=== PATIENT | female | born 1985 | race Caucasian/White ===

== ENCOUNTER 2016-11-22 12:58 | Emergency (ER) | payer BC, OTHER ==
--- NOTE | 2016-11-22 13:37 | ER Document Report ---
ED Medical Screen (RME) - General Chief Complaint: Weakness Stated Complaint: CHEST PAIN, NUMBNESS,WEAKNESS Time Seen by Provider: 11/22/16 13:31 Notes: 31-year-old female patient picked up by EMS from work where she fell out on the smoking deck. She was reportedly unresponsive and ammonia capsule was used to wake her up. She complains of left-sided chest pain with nausea without vomiting. She states that her left upper extremity is numb. When asked about prior incidents she states it has never been like this before. When asked to clarify she indicates that is happening to her legs before but never her arm. She states she is diagnosed with a muscle problem. She does take medication for depression and at this time become tearful and whiny in describing her symptoms. She is able to picker feeder the left arm and use it without difficulty. I have greeted and performed a rapid initial assessment of this patient. A comprehensive ED assessment and evaluation of the patient, analysis of test results and completion of the medical decision making process will be conducted by additional ED providers. TRAVEL OUTSIDE OF THE [place] IN LAST 30 DAYS: No - Related Data Allergies/Adverse Reactions: No Known Allergies Allergy (Verified 11/22/16 13:26) Home Medications: Current Home Medications Buspirone HCl [Buspar 5 mg Tablet] 5 mg PO BID 11/22/16 [History] Fluoxetine HCl [Prozac 20 mg Capsule] 20 mg PO BID 11/22/16 [History] Levonorgestrel [Liletta] 1 each IY ASDIR PRN 11/22/16 [History] Topiramate [Topamax 100 Mg Tablet] 100 mg PO BID 11/22/16 [History] Past Medical History Renal/ Medical History: Denies: Hx Peritoneal Dialysis Psychiatric Medical History: Reports: Hx Anxiety, Hx Depression - Immunizations Hx Diphtheria, Pertussis, Tetanus Vaccination: Yes Physical Exam - Vital signs Vitals: Temp Pulse Resp BP Pulse Ox 98.6 F 89 17 115/74 96 11/22/16 13:22 11/22/16 13:22 11/22/16 13:22 11/22/16 13:22 11/22/16 13:22 Course - Vital Signs Vital signs: Temp Pulse Resp BP Pulse Ox 98.6 F 89 17 115/74 96 11/22/16 13:22 11/22/16 13:22 11/22/16 13:22 11/22/16 13:22 11/22/16 13:22
[2016-11-22] MEDS ORDERED: ONDANSETRON HCL INJ/PF 4 MG/2 ML SDV IV ONE (15:02)
[2016-11-22 15:07] LABS: ABSOLUTE EOSINOPHILS # (AUTO) 0.1 10^3/uL (0.0-0.6); ABSOLUTE LYMPHOCYTES (AUTO) 0.9 10^3/uL (0.5-4.7); ABSOLUTE MONOCYTES (AUTO) 0.4 10^3/uL (0.1-1.4); ABSOLUTE NEUT (AUTO) 9.4 10^3/uL (1.7-8.2); BASOPHILS % (AUTO) 0.4 % (0-2); EOSINOPHILS % (AUTO) 0.5 % (0-6); HEMATOCRIT 38.5 % (36.0-47.0); HEMOGLOBIN 12.8 g/dL (12.0-15.5); HGB HCT DIFFERENCE -0.1; MEAN CORPUSCULAR HEMOGLOBIN 27.3 pg (27.0-33.4); MEAN CORPUSCULAR HGB CONC 33.2 g/dL (32.0-36.0); MEAN CORPUSCULAR VOLUME 82 fl (80-97); MONOCYTES % (AUTO) 3.8 % (3-13); RED BLOOD COUNT 4.69 10^6/uL (3.72-5.28); SEGMENTED NEUTROPHILS % (AUTO) 87.3 % (42-78); WHITE BLOOD COUNT 10.8 10^3/uL (4.0-10.5)
--- NOTE | 2016-11-22 15:07 | ER Document Report ---
ED Syncope and Near Syncope - General Chief Complaint: Weakness Stated Complaint: CHEST PAIN, NUMBNESS,WEAKNESS Time Seen by Provider: 11/22/16 13:31 Mode of Arrival: Wheelchair Information source: Patient Notes: Patient states that she did not eat breakfast or lunch today and around 12:00 this afternoon she was at work and she had a syncopal episode in which she was observed to be unresponsive for a few seconds. Patient states that her coworkers called the EMS. They did not observe any jerking or rhythmic movements. Patient states that after her syncopal episode she has had left- sided neck shoulder chest abdomen back arm hip and leg pain all on the left side. Patient does complain of nausea but denies any vomiting or diarrhea. Patient denies any urinary symptoms. Patient denies any cough headache, or chest pain. Patient states that she did have a syncopal episode last week after she developed right-sided abdominal pain and she followed up with her wide piece goods inspector who in addition to her IUD placed her on oral contraceptive control pills. TRAVEL OUTSIDE OF THE [place] IN LAST 30 DAYS: No - HPI Patient complains to provider of: Fainting Episode witnessed (by whom): Yes - co worker Symptoms prior to episode: None Position/Activity at time of episode: Sitting Quality of pain: Achy Pain Level: 4 Context: Became unresponsive. denies: Incontinent of urine, , Recent immobilization, Recent seizures, Recent travel Injury location: None Current symptoms: Abdominal pain - left side, Arm pain - left, Back pain - left , Chest pain - left side, Neck pain - left side, Shoulder pain - left side, Other - Left lower extremity pain Similar symptoms previously: Yes - Syncopal episode 1 week ago Recently seen / treated by doctor: Yes - FLIGHT OPERATION COORDINATOR 1 week ago - Related Data Allergies/Adverse Reactions: No Known Allergies Allergy (Verified 11/22/16 13:26) Home Medications: Current Home Medications Buspirone HCl [Buspar 5 mg Tablet] 5 mg PO BID 11/22/16 [History] Fluoxetine HCl [Prozac 20 mg Capsule] 20 mg PO BID 11/22/16 [History] Levonorgestrel [Liletta] 1 each IY ASDIR PRN 11/22/16 [History] Topiramate [Topamax 100 Mg Tablet] 100 mg PO BID 11/22/16 [History] Past Medical History - General Information source: Patient Last Menstrual Period: Last week - Social History Smoking Status: Current Every Day Smoker Chew tobacco use (# tins/day): No Frequency of alcohol use: None Drug Abuse: None Occupation: Call center Lives with: Spouse/Significant other Family History: Reviewed & Not Pertinent Renal/ Medical History: Denies: Hx Peritoneal Dialysis Psychiatric Medical History: Reports: Hx Anxiety, Hx Depression Past Surgical History: Reports: Hx Tonsillectomy - Immunizations Hx Diphtheria, Pertussis, Tetanus Vaccination: Yes Review of Systems - Review of Systems Constitutional: No symptoms reported. denies: Fever, Recent illness EENT: No symptoms reported Cardiovascular: Chest pain, Syncope Respiratory: denies: Cough, Short of breath Gastrointestinal: Abdominal pain, Nausea. denies: Diarrhea, Vomiting Genitourinary: Flank pain - left side Female Genitourinary: No symptoms reported. denies: Musculoskeletal: Back pain - left side, Muscle pain - LUE, LLE pain Skin: No symptoms reported Hematologic/Lymphatic: No symptoms reported Neurological/Psychological: Lost consciousness. denies: Confusion Physical Exam - Vital signs Vitals: Temp Pulse Resp BP Pulse Ox 98.6 F 89 17 115/74 96 11/22/16 13:22 11/22/16 13:22 11/22/16 13:22 11/22/16 13:22 11/22/16 13:22 - General General appearance: Appears well, Alert In distress: None - HEENT Head: Normocephalic, Atraumatic Eyes: Normal Conjunctiva: Normal Nasal: Normal Mouth/Lips: Normal Mucous membranes: Normal Neck: Normal, Supple. No: Lymphadenopathy - Respiratory Respiratory status: No respiratory distress Chest status: Tender Breath sounds: Normal Chest palpation: Tender - L upper chest area - Cardiovascular Rhythm: Regular Heart sounds: S1 appreciated, S2 appreciated Murmur: No - Abdominal Inspection: Obese Distension: No distension Bowel sounds: Normal Tenderness: Tender - LLQ tenderness Organomegaly: No organomegaly - Back Back: Tender - Tenderness with palpation of left thoracic and lumbar back area, no midline tenderness, step-off or deformity, CVA tenderness - left. No: Vertebra tenderness - Extremities General upper extremity: Normal inspection, Normal ROM General lower extremity: Normal inspection, Normal ROM Shoulder: Tender - tenderness with palpation of left shoulder joint Arm: Normal, Nontender Elbow: Normal, Nontender Forearm: Normal, Nontender Wrist: Normal, Nontender Hand: Normal, Nontender Hip: Normal, Nontender Calf: Normal, Nontender - Neurological Neuro grossly intact: Yes Cognition: Normal [place] Coma Scale Eye Opening: Spontaneous [place] Coma Scale Verbal: Oriented [place] Coma Scale Motor: Obeys Commands [place] Coma Scale Total: 15 Speech: Normal. No: Dysarthria Cranial nerves: Normal. No: Facial palsy Motor strength normal: LUE, RUE, LLE, RLE - Psychological Associated symptoms: Flat affect - Skin Skin Temperature: Warm Skin Moisture: Dry Skin Color: Normal Course - Re-evaluation Re-evalutation: 11/22/16 16:59 pt resting on stretcher, pt c/o drowsiness after the zofran. No n/v at this time. Consulted with Dr. Pacheco regarding patient presentation, agrees with plan of care. No additional testing advised at this time 11/22/16 17:51 The patient has atypical chest pain as the patient's chest pain is not suggestive of pulmonary embolus, cardiac ischemia, aortic dissection, or other serious etiology. Given the extremely low risk of these diagnoses for the test in evaluation for these possibilities does not appear to be indicated at this time. Patient has been instructed to return if the symptoms worsen or change in any way. - Vital Signs Vital signs: Temp Pulse Resp BP Pulse Ox 98.6 F 89 17 115/74 96 11/22/16 13:22 11/22/16 13:22 11/22/16 13:22 11/22/16 13:22 11/22/16 13:22 - Laboratory Result Diagrams: 11/22/16 14:49 11/22/16 14:49 Laboratory results interpreted by me: 11/22/16 11/22/16 11/22/16 14:08 14:49 14:49 WBC 10.8 H Seg Neutrophils % 87.3 H Lymphocytes % 8.0 L Absolute Neutrophils 9.4 H Chloride 109 H Carbon Dioxide 21 L Urine Protein 30 H Ur Leukocyte Esterase TRACE H Labs- Entire Visit 11/22/16 11/22/16 11/22/16 14:08 14:08 14:49 WBC 10.8 H RBC 4.69 Hgb 12.8 Hct 38.5 MCV 82 MCH 27.3 MCHC 33.2 RDW 14.0 Plt Count 315 Seg Neutrophils % 87.3 H Lymphocytes % 8.0 L Monocytes % 3.8 Eosinophils % 0.5 Basophils % 0.4 Absolute Neutrophils 9.4 H Absolute Lymphocytes 0.9 Absolute Monocytes 0.4 Absolute Eosinophils 0.1 Absolute Basophils 0.0 D-Dimer Sodium Potassium Chloride Carbon Dioxide Anion Gap BUN Creatinine Est GFR ( Amer) Est GFR (Non-Af Amer) Glucose POC Glucose Calcium Total Bilirubin Direct Bilirubin Indirect Bilirubin Neonat Total Bilirubin AST ALT Alkaline Phosphatase Creatine Kinase CK-MB (CK-2) Troponin I Total Protein Albumin Serum HCG, Qual Urine Color MIKE Urine Appearance CLOUDY Urine pH 5.0 Ur Specific [place] 1.029 Urine Protein 30 H Urine Glucose (UA) NEGATIVE Urine Ketones NEGATIVE Urine Blood NEGATIVE Urine Nitrite NEGATIVE Urine Bilirubin NEGATIVE Urine Urobilinogen NEGATIVE Ur Leukocyte Esterase TRACE H Urine WBC (Auto) 8 Urine RBC (Auto) 24 Urine Bacteria (Auto) TRACE Squamous Epi Cells Auto 11 Amorphous Sediment Auto TRACE Urine Mucus (Auto) MOD Urine Ascorbic Acid NEGATIVE Urine Opiates Screen NEGATIVE Urine Methadone Screen NEGATIVE Ur Barbiturates Screen NEGATIVE Ur Phencyclidine Scrn NEGATIVE Ur Amphetamines Screen NEGATIVE U Benzodiazepines Scrn NEGATIVE Urine Cocaine Screen NEGATIVE U Marijuana (THC) Screen UNCONFIRMED POSITIVE 11/22/16 11/22/16 11/22/16 14:49 14:49 14:49 WBC RBC Hgb Hct MCV MCH MCHC RDW Plt Count Seg Neutrophils % Lymphocytes % Monocytes % Eosinophils % Basophils % Absolute Neutrophils Absolute Lymphocytes Absolute Monocytes Absolute Eosinophils Absolute Basophils D-Dimer Sodium 142.9 Potassium 3.7 Chloride 109 H Carbon Dioxide 21 L Anion Gap 13 BUN 10 Creatinine 0.82 Est GFR ( Amer) > 60 Est GFR (Non-Af Amer) > 60 Glucose 89 POC Glucose Calcium 9.4 Total Bilirubin 0.6 Direct Bilirubin 0.4 Indirect Bilirubin Not Reportable Neonat Total Bilirubin Not Reportable AST 25 ALT 27 Alkaline Phosphatase 82 Creatine Kinase 58 CK-MB (CK-2) 0.29 Troponin I < 0.012 Total Protein 7.8 Albumin 4.2 Serum HCG, Qual NEGATIVE Urine Color Urine Appearance Urine pH Ur Specific [place] Urine Protein Urine Glucose (UA) Urine Ketones Urine Blood Urine Nitrite Urine Bilirubin Urine Urobilinogen Ur Leukocyte Esterase Urine WBC (Auto) Urine RBC (Auto) Urine Bacteria (Auto) Squamous Epi Cells Auto Amorphous Sediment Auto Urine Mucus (Auto) Urine Ascorbic Acid Urine Opiates Screen Urine Methadone Screen Ur Barbiturates Screen Ur Phencyclidine Scrn Ur Amphetamines Screen U Benzodiazepines Scrn Urine Cocaine Screen U Marijuana (THC) Screen 11/22/16 11/22/16 14:49 15:07 WBC RBC Hgb Hct MCV MCH MCHC RDW Plt Count Seg Neutrophils % Lymphocytes % Monocytes % Eosinophils % Basophils % Absolute Neutrophils Absolute Lymphocytes Absolute Monocytes Absolute Eosinophils Absolute Basophils D-Dimer < 0.27 Sodium Potassium Chloride Carbon Dioxide Anion Gap BUN Creatinine Est GFR ( Amer) Est GFR (Non-Af Amer) Glucose POC Glucose 96 Calcium Total Bilirubin Direct Bilirubin Indirect Bilirubin Neonat Total Bilirubin AST ALT Alkaline Phosphatase Creatine Kinase CK-MB (CK-2) Troponin I Total Protein Albumin Serum HCG, Qual Urine Color Urine Appearance Urine pH Ur Specific [place] Urine Protein Urine Glucose (UA) Urine Ketones Urine Blood Urine Nitrite Urine Bilirubin Urine Urobilinogen Ur Leukocyte Esterase Urine WBC (Auto) Urine RBC (Auto) Urine Bacteria (Auto) Squamous Epi Cells Auto Amorphous Sediment Auto Urine Mucus (Auto) Urine Ascorbic Acid Urine Opiates Screen Urine Methadone Screen Ur Barbiturates Screen Ur Phencyclidine Scrn Ur Amphetamines Screen U Benzodiazepines Scrn Urine Cocaine Screen U Marijuana (THC) Screen 11/22/16 17:52 - Diagnostic Test Radiology reviewed: Reports reviewed Discharge - Discharge Clinical Impression: Marijuana use, Myalgia Syncope Qualifiers: Syncope type: unspecified Qualified Code(s): R55 - Syncope and collapse UTI (urinary tract infection) Qualifiers: Urinary tract infection type: site unspecified Hematuria presence: without hematuria Qualified Code(s): N39.0 - Urinary tract infection, site not specified Condition: Stable Disposition: HOME, SELF-CARE Instructions: Urinary Tract Infection ([facility]), Trimethoprim-Sulfa ([facility]), Syncopal Episode ([facility]), Myalagia (Muscle Pain) ([facility]) Additional Instructions: Return immediately for any new or worsening symptoms Followup with your primary care provider, call tomorrow to make a followup appointment Avoid use of marijuana Stay well-hydrated Follow-up with your primary care provider for recheck Prescriptions: Sulfamethoxazole/Trimethoprim [Bactrim Ds Tablet] 1 each PO BID #10 tablet Forms: Return to Work Referrals: MAYELIN AARON MD [ACTIVE STAFF] - Follow up as needed [facility] [Provider Group] - Follow up as needed
[2016-11-22 15:15] LABS: AMORPHOUS SEDIMENT,URINE TRACE /HPF; APPEARANCE,URINE CLOUDY; BILIRUBIN,URINE NEGATIVE (NEGATIVE); GLUCOSE, URINE NEGATIVE (NEGATIVE); KETONES,URINE NEGATIVE (NEGATIVE); LEUKOCYTE ESTERASE,URINE TRACE (NEGATIVE); NITRITE,URINE NEGATIVE (NEGATIVE); PROTEIN,URINE 30 mg/dL (NEGATIVE); URINE SPECIFIC GRAVITY 1.029; UROBILINOGEN,URINE NEGATIVE mg/dL (<2.0)
[2016-11-22 15:30] LABS: ALANINE AMINOTRANSFERASE 27 U/L (9-52); ALBUMIN 4.2 g/dL (3.5-5.0); ALKALINE PHOSPHATASE 82 U/L (38-126); ANION GAP 13 (5-19); ASPARTATE AMINO TRANSFERASE 25 U/L (14-36); BILIRUBIN,DIRECT 0.4 mg/dL (0.0-0.4); BILIRUBIN,TOTAL 0.6 mg/dL (0.2-1.3); BLOOD UREA NITROGEN 10 mg/dL (7-20); CALCIUM 9.4 mg/dL (8.4-10.2); CARBON DIOXIDE 21 mmol/L (22-30); CHLORIDE 109 mmol/L (98-107); CREATINE KINASE 58 U/L (30-135); CREATININE RESULT 0.82 mg/dL (0.52-1.25); GLUCOSE 89 mg/dL (75-110); POTASSIUM 3.7 mmol/L (3.6-5.0); SODIUM 142.9 mmol/L (137-145); TOTAL PROTEIN 7.8 g/dL (6.3-8.2)
[2016-11-22 15:39] LABS: URINE BARBITURATES SCREEN NEGATIVE; URINE METHADONE SCREEN NEGATIVE; URINE OPIATES LOW NEGATIVE; URINE PHENCYCLIDINE SCREEN NEGATIVE
[2016-11-22 15:53] LABS: CREATINE KINASE MB 0.29 ng/mL (<4.55)
[2016-11-22 15:54] LABS: TROPONIN I < 0.012 ng/mL
--- NOTE | 2016-11-22 16:20 | RADIOLOGY REPORT (SQ) ---
EXAM DESCRIPTION: CHEST PA/LAT COMPLETED DATE/TIME: 11/22/2016 4:13 pm REASON FOR STUDY: cp COMPARISON: None. EXAM PARAMETERS: NUMBER OF VIEWS: two views TECHNIQUE: Digital Frontal and Lateral radiographic views of the chest acquired. RADIATION DOSE: NA LIMITATIONS: none FINDINGS: LUNGS AND PLEURA: No opacities, masses or pneumothorax. No pleural effusion. MEDIASTINUM AND HILAR STRUCTURES: No masses or contour abnormalities. HEART AND VASCULAR STRUCTURES: Heart normal size. No evidence for failure. BONES: No acute findings. HARDWARE: None in the chest. OTHER: No other significant finding. IMPRESSION: NO SIGNIFICANT RADIOGRAPHIC FINDING IN THE CHEST. TECHNICAL DOCUMENTATION: JOB ID: [id number] [employer]- All Rights Reserved
[2016-11-22] MEDS ORDERED: NORMAL SALINE 1000 ML 1,000 ML IV ONE (16:34)
[2016-11-22] MEDS ORDERED: KETOROLAC TROMETHAMINE INJ/PF 30 MG/1 ML SDV IV ONE (16:58)
[2016-11-22 19:02] VITALS: BP 108/58
--- NOTE | 2016-11-22 19:21 | EKG REPORT ---
SEVERITY:- BORDERLINE ECG - SINUS RHYTHM ATRIAL PREMATURE COMPLEX BORDERLINE T WAVE ABNORMALITIES : Confirmed by: Nicko Reyes MD 22-Nov-2016 19:20:17
== END 2016-11-22 19:00 | disposition home or self-care (01) ==
LOC: ER 12:58
DX: N39.0 Urinary tract infection, site not specified (principal); R55 Syncope and collapse; M79.1 Myalgia; F12.90 Cannabis use, unspecified, uncomplicated; R53.1 Weakness; R07.9 Chest pain, unspecified; R20.0 Anesthesia of skin; M54.2 Cervicalgia; M25.512 Pain in left shoulder; Z79.899 Other long term (current) drug therapy; F17.200 Nicotine dependence, unspecified, uncomplicated
CPT/HCPCS: 93005; 99285; 96361; 96374; 96375; 36415; 82553; 82962; 82550; 84703; 85025; 80053; 81001; 84484; 80307; 85379; 71020; 93010; J1885; J2405; J7030

== ENCOUNTER 2017-01-29 00:45 | Emergency (ER) | payer OTHER ==
--- NOTE | 2017-01-29 01:04 | ER Document Report ---
ED General - General Stated Complaint: POSSIBLE OVERDOSE Time Seen by Provider: 01/29/17 00:51 Cannot obtain history due to: Intoxicated, Uncooperative, Altered mental status Notes: Patient is a 31-year-old female who presents with a polysubstance overdose. Patient is altered, combative and unable to provide meaningful history. TRAVEL OUTSIDE OF THE [place] IN LAST 30 DAYS: No - Related Data Allergies/Adverse Reactions: No Known Allergies Allergy (Verified 11/22/16 13:26) Past Medical History - General Information source: Patient, Emergency Med Personnel Cannot obtain history due to: Intoxicated, Uncooperative, Altered mental status - Social History Smoking Status: Unknown if Ever Smoked Family History: Reviewed & Not Pertinent Renal/ Medical History: Denies: Hx Peritoneal Dialysis Psychiatric Medical History: Reports: Hx Anxiety, Hx Depression Past Surgical History: Reports: Hx Tonsillectomy - Immunizations Hx Diphtheria, Pertussis, Tetanus Vaccination: Yes Review of Systems - Review of Systems -: Yes ROS unobtainable due to patient's medical condition Physical Exam - Vital signs Interpretation: Tachycardic Notes: PHYSICAL EXAMINATION: GENERAL: Agitated, combative, intermittently somnolent HEAD: Atraumatic, normocephalic. EYES: Pupils equal round and reactive to light, extraocular movements intact, sclera anicteric, conjunctiva are normal. ENT: nares patent, oropharynx clear without exudates. Moist mucous membranes. NECK: Normal range of motion, supple without lymphadenopathy LUNGS: Breath sounds clear to auscultation bilaterally and equal. No wheezes rales or rhonchi. HEART: Regular tachycardia without murmurs ABDOMEN: Soft, nontender, normoactive bowel sounds. No guarding, no rebound. No masses appreciated. EXTREMITIES: Normal range of motion, no pitting or edema. No cyanosis. NEUROLOGICAL: No focal neurological deficits. Moves all extremities spontaneously. PSYCH: Agitated, combative, intermittently somnolent SKIN: Warm, Dry, normal turgor, no rashes or lesions noted. Course - Re-evaluation Re-evalutation: 01/29/17 01:02 Patient presents after an intentional overdose on cyclobenzaprine taking approximately anywhere between 150 and 300 mg in a suicide attempt. Patient has a history of bipolar disorder and schizoaffective disorder, is agitated and combative at time of arrival although not in a violent manner. She is protecting her airway. She struggles to explain if she took any additional medications other than cyclobenzaprine. She does admit that this was a suicide attempt. Poison control be contacted, patient was placed on cardiac rehab nurse, standard screening laboratories will be obtained, and IVC will be completed 01/29/17 01:36 Patient is now become increasingly agitated and has required physical restraints for the safety of herself and staff. Will continue to monitor closely. IVC has been completed. 01/29/17 02:54 Patient does still continue to be somewhat aggressive, did swing at one of the nurses at the first attempt to remove restraints. Laboratories are unremarkable. Poison control has been contacted and does not have any specific recommendations other than monitoring for 4-6 hours. She is cleared for psychiatric evaluation in the morning. - Laboratory Result Diagrams: 01/29/17 01:10 01/29/17 01:10 Laboratory results interpreted by me: 01/29/17 01:10 Sodium 148.3 H Chloride 112 H Carbon Dioxide 20 L Glucose 117 H Salicylates < 1.0 L Acetaminophen < 10 L - EKG Interpretation by Me Additional EKG results interpreted by me: 01/29/17 03:55 Normal sinus rhythm. Rate 94. No ST elevations or depressions. QTC is 466. Discharge - Discharge Clinical Impression: Suicide attempt Overdose Qualifiers: Encounter type: initial encounter Injury intent: intentional self-harm Qualified Code(s): T50.902A - Poisoning by unspecified drugs, medicaments and biological substances, intentional self-harm, initial encounter Condition: Fair Disposition: PSYCH HOSP/UNIT
[2017-01-29 01:21] LABS: ABSOLUTE EOSINOPHILS # (AUTO) 0.1 10^3/uL (0.0-0.6); ABSOLUTE MONOCYTES (AUTO) 0.5 10^3/uL (0.1-1.4); ABSOLUTE NEUT (AUTO) 6.2 10^3/uL (1.7-8.2); BASOPHILS % (AUTO) 0.5 % (0-2); EOSINOPHILS % (AUTO) 1.2 % (0-6); HEMATOCRIT 37.9 % (36.0-47.0); HEMOGLOBIN 12.8 g/dL (12.0-15.5); HGB HCT DIFFERENCE 0.5; LYMPHOCYTES % (AUTO) 22.9 % (13-45); MEAN CORPUSCULAR HEMOGLOBIN 27.8 pg (27.0-33.4); MEAN CORPUSCULAR HGB CONC 33.7 g/dL (32.0-36.0); MEAN CORPUSCULAR VOLUME 82 fl (80-97); MONOCYTES % (AUTO) 5.5 % (3-13); RED BLOOD COUNT 4.61 10^6/uL (3.72-5.28); RED CELL DISTRIBUTION WIDTH 13.7 % (11.5-14.0); SEGMENTED NEUTROPHILS % (AUTO) 69.9 % (42-78); WHITE BLOOD COUNT 8.8 10^3/uL (4.0-10.5)
[2017-01-29 01:37] LABS: ALANINE AMINOTRANSFERASE 35 U/L (9-52); ALBUMIN 4.2 g/dL (3.5-5.0); ALCOHOL < 10 mg/dL (NONE DETECTED); ALKALINE PHOSPHATASE 82 U/L (38-126); ANION GAP 16 (5-19); ASPARTATE AMINO TRANSFERASE 19 U/L (14-36); BILIRUBIN,DIRECT 0.3 mg/dL (0.0-0.4); BILIRUBIN,TOTAL 0.3 mg/dL (0.2-1.3); BLOOD UREA NITROGEN 12 mg/dL (7-20); CALCIUM 9.3 mg/dL (8.4-10.2); CARBON DIOXIDE 20 mmol/L (22-30); CHLORIDE 112 mmol/L (98-107); CREATININE RESULT 0.76 mg/dL (0.52-1.25); GLUCOSE 117 mg/dL (75-110); POTASSIUM 4.4 mmol/L (3.6-5.0); SODIUM 148.3 mmol/L (137-145); TOTAL PROTEIN 7.5 g/dL (6.3-8.2)
[2017-01-29] MEDS ORDERED: NORMAL SALINE 1000 ML 1,000 ML IV ONE (09:18)
--- NOTE | 2017-01-29 09:21 | ER Document Report ---
Doctor's Note Notes: 01/29/17 09:20 Patient was brought in yesterday secondary to overdose on cyclobenzaprine as a suicide attempt. Patient has a history of bipolar and schizoaffective disorder. Labs as recorded. I have ordered a liter of normal saline. Patient required restraints secondary to aggressive behavior. Labs as recorded. Repeat vital signs are stable. Patient is more calm at this time in no acute distress. Awaiting psychiatric evaluation.
--- NOTE | 2017-01-29 10:39 | EKG REPORT ---
SEVERITY:- NORMAL ECG - SINUS RHYTHM : Confirmed by: Mariaa Brush MD 29-Jan-2017 10:38:25
[2017-01-29 11:09] LABS: AMORPHOUS SEDIMENT,URINE TRACE /HPF; APPEARANCE,URINE CLOUDY; BILIRUBIN,URINE NEGATIVE (NEGATIVE); GLUCOSE, URINE NEGATIVE (NEGATIVE); KETONES,URINE NEGATIVE (NEGATIVE); LEUKOCYTE ESTERASE,URINE NEGATIVE (NEGATIVE); NITRITE,URINE NEGATIVE (NEGATIVE); PROTEIN,URINE NEGATIVE (NEGATIVE); UROBILINOGEN,URINE NEGATIVE mg/dL (<2.0)
[2017-01-29 11:54] LABS: URINE BARBITURATES SCREEN NEGATIVE; URINE METHADONE SCREEN NEGATIVE; URINE OPIATES LOW NEGATIVE; URINE PHENCYCLIDINE SCREEN NEGATIVE
--- NOTE | 2017-01-29 12:49 | PSYCHOLOGICAL NOTE ---
Psych Note - Psych Note Psych Note: Patient is a 31-year-old female who presents with a polysubstance overdose. Patient is altered, combative and unable to provide meaningful history. Patient disclosed that she took medications in the "heat of the moment." She continued to state that she does not think there was any trigger that caused her to do this. Patient denies any previous attempts. Patient reports she is diagnosed bipolar with psychotic features. She reports she was sees Dr. Allan at [facility] and told him she thought "stuff was starting to crack through" but that he "kind of brushed it off." Patient's Bobby is at bedside per patient's request. He disclosed the patient has been super happy and he thought things were going really well. He confirms the patient has been happier and more energetic than normal so he thought this was a good thing. He continued disclosed the patient was having difficulty sleeping and thinks this is why she is having a hard time staying awake now. He continued to disclose he was at work at the time the patient took the medications. He received a text message from his [id number] and went to the home since he was closer. He disclosed the patient has only had one previous attempt however this was 15 years ago when she was only 17 years old. Patient is semi-alert and orientated to person, place, time and circumstance. Patient goes in and out of sleep and having difficulty engaging with clinician and evaluation. Patient discloses auditory hallucinations. Attention and concentration are poor. Insight, judgment, impulse control is poor. 296.44 (F31.2) bipolar 1 disorder with psychotic features Impression\\plan: Patient is recommended to continue under IVC. Patient disclosed intentional overdose "in the heat of the moment" but is unable to identify a trigger. Patient is having difficulty engaging in evaluation, patient is going in and out of sleep. Patient will be reevaluated. Dr. Rodriguez was consulted and the care and management of this patient; attending physician is in agreement with recommendations and disposition.
--- NOTE | 2017-01-30 09:29 | ER Document Report ---
Doctor's Note Notes: 01/30/17 09:29 Patient was brought secondary to overdose on cyclobenzaprine as a suicide attempt. Patient has a history of bipolar and schizoaffective disorder. Labs as recorded. Labs as recorded. Repeat vital signs are stable. Patient is currently, no acute distress. Vital signs as recorded. Patient is calm with no acute complaints at this time.
--- NOTE | 2017-01-31 08:07 | PSYCHOLOGICAL NOTE ---
Psych Note - Psych Note Psych Note: Conducted brief check in with patient who is a 31-year-old female under IVC at [facility] due to polypharmacy overdose. Patient today continues to present depressed and denies knowledge of any precipitating factors to her overdose. Patient states this is quite confusing. Patient reports she thinks her medications need to be adjusted due to length of use and possible ineffectiveness at this time. Mother Niki : Left msg requesting return contact Patient appears alert and oriented. Mood is depressed with flat affect. Patient endorses suicidal intent behind her overdose but denies any precipitating events and is unable to identify a trigger. Patient denies homicidal ideations, intent, plan, means. Patient denies A/VH; delusions not noted. Thought processes were guarded. Conversational speech was low for rate , tone, and prosody. Intellectual abilities were estimated within average range. Attention and focus were poor. Insight, judgment, impulse control are poor. 296.44 (F31.2) bipolar 1 disorder with psychotic features Impression\plan: Patient is recommended to continue under IVC. At this time patient continues to present depressed and is unable to identify a trigger or precipitating event. Patient states she was not suicidal prior to the incident and does not know what happened. Patient is considered a danger to herself at this time due to poor insight and risk for continued episodes. I consulted with Dr. Rodriguez in regards to the care and management of this patient. [facility]AL is in agreement with disposition and recommendations.
[2017-01-31] MEDS ORDERED: BENZTROPINE MESYLATE 1 MG TABLET PO ONE (08:22)
[2017-01-31] MEDS ORDERED: FLUOXETINE HCL 20 MG CAPSULE PO ONE (08:22)
[2017-01-31] MEDS ORDERED: BUSPIRONE HCL 10 MG TABLET PO ONE (08:22)
[2017-01-31] MEDS ORDERED: OLANZAPINE 5 MG TABLET PO ONE (08:22)
--- NOTE | 2017-01-31 08:25 | PSYCHOLOGICAL NOTE ---
Psych Note - Psych Note Psych Note: Conducted check in with patient who is a 31-year-old female under IVC at [facility]. Patient today is sitting up and smiling in bed. Patient states she still does not know what precipitated this event. She states she was not arguing with her . She does report she attempted to disclose to her provider that she was concerned her medications were not working properly, and was added Seroquel at night. Patient states she does not think this helped and is questioning whether it made things worse. Patient reports she has spoken with her who is just as bewildered and they have discussed is a couple her following up with a different provider. Patient reports she does have private insurance. Discussed with patient additionally engaging in outpatient therapy to assist her in processing this event as well as identifying coping skills, and his safety plan to follow at home should she or her identify changes in mentation and/or triggers/warning signs. Patient reports she is agreeable to this. Patient requests information on additional providers. Patient reports she has previously engaged in therapy, but has mostly done her own research and educated herself on her disease. Patient states she generally handles it well and is efficaciously managed with her medications. Patient denies suicidal ideations. Patient denies wanting to engage in self-harm. Patient denies wanting to harm others. Patient denies homicidal ideations.Discussed possible precautionary measures to implement at home, to include managing her medications (and all otc meds) out of a locked box and monitoring usage. Patient states she is agreeable to this. , Henry : Return contact and states "I am 100% in agreement" with the plan of care. Has been reports he will get all of the medications in the home into a lock box and provide his her doses as they are due. He states he will restrict her access to any medications to include [id number]. Has been reports she is in agreement with her beginning outpatient therapy to adjust coping skills and identify a safety plan to implement within the home. states he is also in agreement to assist her in following up with medication management. No concerns reported. Patient is alert and oriented. He is euthymic with normal affect. Patient adamantly denies suicidal/homicidal ideations, intent, plan, means. Patient denies A/VH; delusions not noted. Thought processes were organized and linear. Conversational speech was within normal limits for rate, tone, and prosody. Intellectual abilities were estimated within average range. Attention and focus were fair. Insight, judgment, impulse control were poor to fair. 296.44 (F31.2) bipolar 1 disorder with psychotic features Impression\\plan: Patient is recommended for rescind IVC. Patient is considered psychiatrically cleared for discharge. Patient and are in agreement with the plan of care, to include following up with [facility] for outpatient counseling as well as medication management, purchasing a lock box and securing all medications in the home in said box, restricting patient access to medications with the exception of her doses when they are due provided to her by her . Patient no longer meets criteria for involuntary commitment per the [place] statute 122c as she denies suicidal ideations denies self-harm ideations, and denies thoughts of harming others. reports she is in agreement and feels she is safe to return home. I consulted with Dr. Rodriguez in regards to the care and management of this patient.
[2017-01-31] MEDS ORDERED: FLUOXETINE HCL 20 MG CAPSULE PO SCH (10:00)
[2017-01-31] MEDS ORDERED: BENZTROPINE MESYLATE 1 MG TABLET PO SCH (10:00)
[2017-01-31] MEDS ORDERED: OLANZAPINE 5 MG TABLET PO SCH (10:00)
[2017-01-31] MEDS ORDERED: BUSPIRONE HCL 10 MG TABLET PO SCH (10:00)
[2017-01-31 10:16] VITALS: BP 106/67
== END 2017-01-31 09:45 | disposition home or self-care (01) ==
LOC: ER 00:45
DX: T50.902A Poisoning by unspecified drugs, medicaments and biological substances, intentional self-harm, initial encounter (principal); Y92.9 Unspecified place or not applicable
CPT/HCPCS: 93005; 99285; 96360; 36415; 80307 ×4; 84703; 85025; 80053; 81001; 93010; J7030

== ENCOUNTER 2018-04-17 11:38 | Day surgery (SDC) | payer OTHER ==
[~2018-04-17 11:38] MED LIST: PROPOFOL INJ 200 MG/20 ML VIAL IV ONE
--- NOTE | 2018-04-17 12:55 | Operative Report ---
Operative Report DATE OF SURGERY: 04/17/18 Operative Report: The risks, benefits and alternatives of the procedure including the risks of bleeding, perforation requiring surgery are explained to the patient in detail and informed consent was obtained. The patient is brought back to the endoscopy suite and placed in the left, lateral decubital position. Timeout was called. Propofol medications administered. A rectal examination is done which did not reveal any masses, tears or fissures. An Olympus videoscope is introduced into the patient's rectum. The scope was then carefully advanced all the way to the cecum. The cecum was identified by the usual anatomical landmarks including the ileocecal valve as well as the appendiceal office. Photodocumentation is obtained. The scope was then sequentially pulled back via the various segments of the colon including the ascending colon, hepatic flexure, transverse colon, splenic flexure, descending colon and finally into the rectosigmoid portions of the colon. Retroflexion maneuver is performed. The risks benefits and alternatives of the procedure explained to the patient in detail and informed consent is obtained.A GIF Olympus video scope was inserted into the patient's mouth and hypopharynx, the esophagus is identified intubated and insufflated ,the scope was then advanced through the esophagus stomach and duodenum, retroflexion maneuver is done ,the esophagus stomach and first and second portions of the duodenum examined PREOPERATIVE DIAGNOSIS: Abdominal pain, periumbilical. Nausea vomiting POSTOPERATIVE DIAGNOSIS: Gastritis status post biopsy rule out Helicobacter pylori. Normal colonoscopy to the cecum. Mild terminal ileitis status post biopsy rule out Crohn's disease OPERATION: Colonoscopy with biopsy. EGD with biopsy SURGEON: AC TAVERAS ANESTHESIA: LMAC TISSUE REMOVED OR ALTERED: As noted above. COMPLICATIONS: None. ESTIMATED BLOOD LOSS: None. INTRAOPERATIVE FINDINGS: As noted above. PROCEDURE: Patient tolerated the procedure well. No immediate postprocedure complications are noted. Patient discharged in good condition. Discharge date 04/17/2018. Discharge diet: Regular. Discharge activity: Regular. 2-3-week follow-up to discuss findings. Patient is instructed to call the office or proceed to the emergency room should there be any further problems or questions. Wait on the pathology.
[2018-04-17 13:24] VITALS: BP 100/59
== END 2018-04-17 13:15 | disposition home or self-care (01) ==
LOC: END 11:38
PROVIDERS: ATTEND Internal Medicine Gastroenterology
DX: K29.50 Unspecified chronic gastritis without bleeding (principal); D50.9 Iron deficiency anemia, unspecified; K52.9 Noninfective gastroenteritis and colitis, unspecified; E66.9 Obesity, unspecified; R91.8 Other nonspecific abnormal finding of lung field; Z68.37 Body mass index [BMI] 37.0-37.9, adult; Z87.891 Personal history of nicotine dependence; Z79.899 Other long term (current) drug therapy
CPT/HCPCS: 43239; 45380; 81025; 88342 ×2; 88305 ×2; J2704; 813

== ENCOUNTER 2018-07-18 01:02 | Emergency (ER) | payer OTHER ==
--- NOTE | 2018-07-18 01:46 | ER Document Report ---
ED Psych Disorder / Suicide - General Chief Complaint: Psych Problem Stated Complaint: PSYCH PROBLEM Time Seen by Provider: 07/18/18 01:46 Mode of Arrival: Ambulatory Information source: Patient, Parent Cannot obtain history due to: Uncooperative Notes: HISTORY OF PRESENT ILLNESS: Patient is a 33-year-old female with a past medical history of bipolar disorder and anxiety/depression who presents with acute alcohol intoxication and intentional overdose on gabapentin. Patient has been off her medications and reports feeling "stressed out" due to stressors at home regarding her . Parents at bedside state the patient was hallucinating and they have "never seen her like this." Patient reports drinking alcohol but will not clarify how much, also reports taking "about 3 or 4" gabapentin after drinking unknown amount of alcohol then took "about 4 more" before being found by her parents. Onset: Prior to arrival Provocation: Stress at home Quality: Depression Radiation: None Severity: Severe Timing: Distant SI/HI: Passive suicidal ideation without a plan other than taking pills Hallucinations: Yes Current therapist: Yes Current treatment: Gabapentin REVIEW OF SYSTEMS: CONSTITUTIONAL : Denies fever or chills, no sweats. Denies recent illness. EENT: Denies eye, ear, throat, or mouth pain or symptoms. Denies nasal or sinus congestion. CARDIOVASCULAR: Denies chest pain. RESPIRATORY: Denies cough, cold, or chest congestion. Denies shortness of breath, difficulty breathing, or wheezing. GASTROINTESTINAL: Denies abdominal pain. Denies nausea, vomiting, or diarrhea. Denies constipation. GENITOURINARY: Denies difficulty urinating, painful urination, burning, frequency, or blood in urine. FEMALE GENITOURINARY: Denies vaginal bleeding, abnormal or irregular periods. Last menstrual period MUSCULOSKELETAL: Denies neck or back pain or joint pain or swelling. SKIN: Denies rash or skin lesions. HEMATOLOGIC : Denies easy bruising or bleeding. LYMPHATIC: Denies swollen, enlarged glands. NEUROLOGICAL: Denies altered mental status or loss of consciousness. Denies headache. Denies weakness or paralysis or loss of use of either side. Denies problems with gait or speech. Denies sensory or motor loss. PSYCHIATRIC: Positive for suicidal thoughts. Positive for increased stress and depression. All other systems reviewed and negative. PHYSICAL EXAMINATION: GENERAL: Intoxicated-appearing, well-nourished and in no acute distress. HEAD: Atraumatic, normocephalic. No scalp deformity, depression, or crepitance. EYES: Pupils are 4mm and equal/round/reactive to light, extraocular movements intact, sclera anicteric, conjunctiva are normal. ENT: Nares patent bilaterally, oropharynx clear without exudates or palatal petechia. Moist mucous membranes. No tonsil hypertrophy. NECK: Normal range of motion, supple without lymphadenopathy. LUNGS: Breath sounds present, equal, and clear to auscultation bilaterally. No wheezes, rales, or rhonchi. HEART: Regular rate and rhythm without murmurs, rubs, or gallops. 2+ peripheral pulses. Normal capillary refill. ABDOMEN: Innumerable number of superficial linear lacerations to the anterior abdomen. Soft, nontender, nondistended. Normoactive bowel sounds. No guarding, no rebound. No masses appreciated. BACK: Normal contour, no midline tenderness. Rectal exam deferred. PELVC: Deferred. EXTREMITIES: Innumerable number of superficial linear lacerations to the left anterior forearm without bleeding or drainage. Normal range of motion, no pitting or edema. No cyanosis. NEUROLOGICAL: No focal neurological deficits. Moves all extremities spontaneously and on command. PSYCH: Depressed and anxious mood, normal affect. Positive passive suicidal thoughts/ideations with a plan to "take more medicine or cut myself." No homocidal thoughts/ideations. Positive hallucinations that this provider is "a wizard" and that the nurses are "fairies," this facility is "a portal." SKIN: Warm, dry, normal turgor, no rashes or lesions noted. ASSESSMENT AND PLAN: This patient is a 33-year-old female who presents with acute alcohol intoxication and apparent intentional overdose with the intent to self-harm. Could represent initial psychotic break versus cry for help versus attention seeking behavior. 1. Will obtain medical clearance and observe the patient, will also contact poison control center. 2. Will give IV fluids and nicotine patch. 3. Will petition patient for involuntary commitment in inpatient treatment. TRAVEL OUTSIDE OF THE [place] IN LAST 30 DAYS: No COUNTRY TRAVELED TO/FROM: [facility] - Related Data Allergies/Adverse Reactions: No Known Allergies Allergy (Verified 04/17/18 11:55) Past Medical History - General Information source: Patient, Parent Cannot obtain history due to: Uncooperative - Social History Smoking Status: Current Every Day Smoker Chew tobacco use (# tins/day): No Frequency of alcohol use: Occasional Drug Abuse: Marijuana Lives with: Family Family History: Reviewed & Not Pertinent Patient has suicidal ideation: Yes Patient has homicidal ideation: No - Past Medical History Cardiac Medical History: Reports: None Denies: Hx Coronary Artery Disease, Hx Heart Attack, Hx Hypertension Pulmonary Medical History: Reports: None Denies: Hx Asthma, Hx Bronchitis, Hx COPD, Hx Pneumonia EENT Medical History: Reports: None Neurological Medical History: Reports: None. Denies: Hx Cerebrovascular Accident, Hx Seizures Endocrine Medical History: Reports: None Renal/ Medical History: Reports: None. Denies: Hx Peritoneal Dialysis Malignancy Medical History: Reports: None GI Medical History: Reports: None Musculoskeletal Medical History: Reports None, Denies Hx Arthritis Skin Medical History: Reports None Psychiatric Medical History: Reports: Hx Anxiety, Hx Bipolar Disorder, Hx Depression Traumatic Medical History: Reports: None Infectious Medical History: Reports: None Past Surgical History: Reports: Hx Tonsillectomy - Immunizations Hx Diphtheria, Pertussis, Tetanus Vaccination: Yes Physical Exam - Vital signs Vitals: Temp Pulse Resp BP Pulse Ox 99.2 F 112 H 16 131/76 H 98 07/18/18 01:20 07/18/18 01:20 07/18/18 01:20 07/18/18 01:20 07/18/18 01:20 Course - Re-evaluation Re-evalutation: 07/18/18 03:56 Initial blood work is unremarkable. Ethanol is mildly elevated but not impressive. Per recommendations of poison control center, patient will be observed for approximately 6 hours postingestion for possibility of oversedation and respiratory depression. Patient has been petitioned for involuntary commitment. Patient will be observed in the main adult emergency department until she can be safely transitioned to behavioral health. - Vital Signs Vital signs: Temp Pulse Resp BP Pulse Ox 99.2 F 112 H 16 131/76 H 97 07/18/18 01:20 07/18/18 01:20 07/18/18 02:00 07/18/18 01:20 07/18/18 02:00 - Laboratory Result Diagrams: 07/18/18 01:34 07/18/18 01:34 Laboratory results interpreted by me: 07/18/18 07/18/18 01:34 01:34 MCV 79 L RDW 14.4 H Chloride 108 H Carbon Dioxide 21 L Calcium 10.7 H Salicylates < 1.0 L Acetaminophen < 10 L - EKG Interpretation by Me EKG shows normal: Sinus rhythm Rate: Normal Rhythm: NSR [place]/QRS: No: Right axis deviation, Left axis deviation, RBBB, LBBB, IVCD, LAHB/LAFB, LPHB/LPFB, Bifasicular block Voltage: No: Increased voltage, Consistant with LVH, Decreased voltage, Throughout, Limb leads P Waves: No: RENUKA, LAE, Absent, AV Dissociation, Other Heart block present: No: 1st Degree, Mobitz 1, Mobitz 2, CHB (3rd degree block) When compared to previous EKG there are: No significant change - Transfer of Care Care transferred to following provider: Dr. Duque Discharge - Discharge Clinical Impression: Acute psychosis Condition: Stable Disposition: PSYCH HOSP/UNIT Forms: Parent Work Note
[2018-07-18 01:50] LABS: ABSOLUTE EOSINOPHILS # (AUTO) 0.1 10^3/uL (0.0-0.6); ABSOLUTE LYMPHOCYTES (AUTO) 2.1 10^3/uL (0.5-4.7); ABSOLUTE MONOCYTES (AUTO) 0.4 10^3/uL (0.1-1.4); ABSOLUTE NEUT (AUTO) 4.1 10^3/uL (1.7-8.2); BASOPHILS % (AUTO) 0.3 % (0-2); EOSINOPHILS % (AUTO) 0.9 % (0-6); HEMATOCRIT 40.3 % (36.0-47.0); HEMOGLOBIN 13.8 g/dL (12.0-15.5); LYMPHOCYTES % (AUTO) 31.4 % (13-45); MEAN CORPUSCULAR HEMOGLOBIN 27.1 pg (27.0-33.4); MEAN CORPUSCULAR HGB CONC 34.3 g/dL (32.0-36.0); MEAN CORPUSCULAR VOLUME 79 fl (80-97); MONOCYTES % (AUTO) 6.3 % (3-13); PLATELET COUNT 388 10^3/uL (150-450); RED CELL DISTRIBUTION WIDTH 14.4 % (11.5-14.0); SEGMENTED NEUTROPHILS % (AUTO) 61.1 % (42-78); TOTAL CELLS COUNTED % (AUTO) 100 %; WHITE BLOOD COUNT 6.7 10^3/uL (4.0-10.5)
[2018-07-18 02:10] LABS: APPEARANCE,URINE CLEAR; BILIRUBIN,URINE NEGATIVE (NEGATIVE); COLOR,URINE STRAW; GLUCOSE, URINE NEGATIVE (NEGATIVE); KETONES,URINE NEGATIVE (NEGATIVE); LEUKOCYTE ESTERASE,URINE NEGATIVE (NEGATIVE); NITRITE,URINE NEGATIVE (NEGATIVE); PROTEIN,URINE NEGATIVE (NEGATIVE); URINE SPECIFIC GRAVITY 1.004; UROBILINOGEN,URINE NEGATIVE mg/dL (<2.0)
[2018-07-18] MEDS ORDERED: CEPHALEXIN 500 MG CAPSULE PO ONE (02:18)
[2018-07-18] MEDS ORDERED: DIPH/PERTUSS(ACELL)/TETANUS VAC/PF 0.5 ML SYR (>=10YO) IM ONE (02:18)
[2018-07-18] MEDS ORDERED: NICOTINE 21 MG/24 HR PATCH.TD24 TD ONE (02:18)
[2018-07-18 02:24] LABS: URINE AMPHETAMINES SCREEN NEGATIVE; URINE BARBITURATES SCREEN NEGATIVE; URINE BENZODIAZEPINES SCREEN NEGATIVE; URINE COCAINE SCREEN NEGATIVE; URINE MARIJUANA (THC) SCREEN NEGATIVE; URINE METHADONE SCREEN NEGATIVE; URINE PHENCYCLIDINE SCREEN NEGATIVE
[2018-07-18 02:26] LABS: ALANINE AMINOTRANSFERASE 26 U/L (9-52); ALBUMIN 4.4 g/dL (3.5-5.0); ALKALINE PHOSPHATASE 87 U/L (38-126); ASPARTATE AMINO TRANSFERASE 20 U/L (14-36); BLOOD UREA NITROGEN 9 mg/dL (7-20); CARBON DIOXIDE 21 mmol/L (22-30); GLUCOSE 97 mg/dL (75-110); TOTAL PROTEIN 7.9 g/dL (6.3-8.2)
[2018-07-18 02:28] LABS: ANION GAP 11 (5-19); CHLORIDE 108 mmol/L (98-107); SODIUM 140.2 mmol/L (137-145)
[2018-07-18 02:29] LABS: ALCOHOL 32 mg/dL (NONE DETECTED); POTASSIUM 4.1 mmol/L (3.6-5.0)
[2018-07-18 02:40] LABS: BILIRUBIN,DIRECT 0.3 mg/dL (0.0-0.4); BILIRUBIN,TOTAL 0.4 mg/dL (0.2-1.3); CALCIUM 10.7 mg/dL (8.4-10.2)
[2018-07-18 02:50] LABS: ACETAMINOPHEN < 10 ug/mL (10-30); SALICYLATE < 1.0 mg/dL (2.0-20.0)
[2018-07-18] MEDS ORDERED: NORMAL SALINE 1000 ML 1,000 ML IV ONE (02:55)
--- NOTE | 2018-07-18 09:21 | ER Document Report ---
Doctor's Note Notes: 07/18/18 09:19 Patient seen and evaluated. She was initially seen for potential Neurontin overdose, alcohol intoxication, auditory hallucinations. Laboratory investigations were evaluated. This morning she is complaining of a headache. She has a history of headaches similar to this. She denies any visual changes associated. She describes pain with bright light and loud noises. This is all typical of her headaches. She says she has some associated nausea as well. She understands that she is being transferred to a psychiatric facility. Poison control recommendations were followed, the patient was served for over 6 hours, and is medically cleared. We will transfer to a psychiatric facility pending acceptance. Vital signs reviewed. Head is normocephalic and atraumatic. Pupils are equal and round, reactive to light. Heart is regular rate and rhythm, lungs are clear to auscultation bilaterally. Extremities without cyanosis or clubbing. Peripheral pulses are equal. Neck is supple, no meningismus. Examination of the upper extremity reveals superficial linear lacerations consistent with self-injurious behavior. Assessment includes intentional overdose, auditory hallucination, self-injurious behavior. Patient is medically cleared. We will transferred to a psychiatric facility for further psychiatric care. 07/18/18 09:42
[2018-07-18] MEDS ORDERED: ONDANSETRON HCL INJ/PF 4 MG/2 ML SDV IV ONE (09:28)
[2018-07-18] MEDS ORDERED: KETOROLAC TROMETHAMINE INJ/PF 30 MG/1 ML SDV IV ONE (09:28)
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
[2018-07-18] MEDS ORDERED: CHLORPROMAZINE HCL 50 MG TABLET PO ONE (12:58)
[2018-07-18 13:46] VITALS: BP 113/60
--- NOTE | 2018-07-19 00:04 | EKG REPORT ---
SEVERITY:- ABNORMAL ECG - SINUS TACHYCARDIA NONSPECIFIC T ABNORMALITIES, INFERIOR LEADS : Confirmed by: Dayne Mcclelland 19-Jul-2018 00:03:01
== END 2018-07-18 13:49 ==
LOC: ER 01:02
DX: F23 Brief psychotic disorder (principal); T42.6X2A Poisoning by other antiepileptic and sedative-hypnotic drugs, intentional self-harm, initial encounter; F32.9 Major depressive disorder, single episode, unspecified; F10.129 Alcohol abuse with intoxication, unspecified; Y92.009 Unspecified place in unspecified non-institutional (private) residence as the place of occurrence of the external cause; F17.200 Nicotine dependence, unspecified, uncomplicated; Z23 Encounter for immunization
CPT/HCPCS: 93005; 99285; 36415; 80307 ×4; 84703; 85025; 80053; 81001; 90715; 93010; J3490; J1885; J2405; J7030

== ENCOUNTER 2019-05-04 22:42 | Emergency (ER) | payer OTHER, BC ==
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
[2019-05-05 00:40] LABS: APPEARANCE,URINE CLEAR; BILIRUBIN,URINE NEGATIVE (NEGATIVE); COLOR,URINE YELLOW; GLUCOSE, URINE NEGATIVE (NEGATIVE); KETONES,URINE NEGATIVE (NEGATIVE); LEUKOCYTE ESTERASE,URINE NEGATIVE (NEGATIVE); NITRITE,URINE NEGATIVE (NEGATIVE); PROTEIN,URINE NEGATIVE (NEGATIVE); URINE SPECIFIC GRAVITY 1.023; UROBILINOGEN,URINE NEGATIVE mg/dL (<2.0)
[2019-05-05 00:41] LABS: ABSOLUTE EOSINOPHILS # (AUTO) 0.1 10^3/uL (0.0-0.6); ABSOLUTE LYMPHOCYTES (AUTO) 1.9 10^3/uL (0.5-4.7); ABSOLUTE MONOCYTES (AUTO) 0.4 10^3/uL (0.1-1.4); ABSOLUTE NEUT (AUTO) 6.9 10^3/uL (1.7-8.2); BASOPHILS % (AUTO) 0.4 % (0-2); EOSINOPHILS % (AUTO) 0.9 % (0-6); HEMATOCRIT 39.4 % (36.0-47.0); HEMOGLOBIN 13.2 g/dL (12.0-15.5); LYMPHOCYTES % (AUTO) 19.9 % (13-45); MEAN CORPUSCULAR HEMOGLOBIN 27.4 pg (27.0-33.4); MEAN CORPUSCULAR HGB CONC 33.5 g/dL (32.0-36.0); MEAN CORPUSCULAR VOLUME 82 fl (80-97); MONOCYTES % (AUTO) 4.7 % (3-13); PLATELET COUNT 332 10^3/uL (150-450); RED BLOOD COUNT 4.82 10^6/uL (3.72-5.28); RED CELL DISTRIBUTION WIDTH 13.6 % (11.5-14.0); SEGMENTED NEUTROPHILS % (AUTO) 74.1 % (42-78); TOTAL CELLS COUNTED % (AUTO) 100 %; WHITE BLOOD COUNT 9.4 10^3/uL (4.0-10.5)
[2019-05-05 01:02] LABS: ALBUMIN 4.3 g/dL (3.5-5.0); ALKALINE PHOSPHATASE 94 U/L (38-126); ANION GAP 12 (5-19); ASPARTATE AMINO TRANSFERASE 21 U/L (14-36); BILIRUBIN,TOTAL 0.3 mg/dL (0.2-1.3); BLOOD UREA NITROGEN 12 mg/dL (7-20); CALCIUM 9.8 mg/dL (8.4-10.2); CARBON DIOXIDE 25 mmol/L (22-30); CHLORIDE 102 mmol/L (98-107); GLUCOSE 151 mg/dL (75-110); POTASSIUM 3.8 mmol/L (3.6-5.0); TOTAL PROTEIN 7.5 g/dL (6.3-8.2)
[2019-05-05] MEDS ORDERED: ONDANSETRON 4 MG TAB.RAPDIS PO ONE (03:54)
[2019-05-05] MEDS ORDERED: OXYCODONE-ACETAMINOPHEN 5-325 MG TABLET PO ONE (03:54)
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
--- NOTE | 2019-05-05 05:11 | RADIOLOGY REPORT (SQ) ---
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 TECHNIQUE: AP, oblique, and lateral images of the left knee were obtained. COMPARISON: None available FINDINGS: There are no findings to suggest an acute fracture or subluxation. No suprapatellar joint effusion is seen. The visualized soft tissues are grossly unremarkable. No gross erosions or abnormal soft tissue calcifications are seen. IMPRESSION: There are no findings to suggest an acute fracture or subluxation within the left knee.
[2019-05-05] MEDS ORDERED: HYDROCODONE/ACETAMINOPHEN 5-325 MG (6 TAB/ER DISP) PO PRN (05:22)
[2019-05-05 05:53] VITALS: BP 98/52
== END 2019-05-05 05:53 | disposition home or self-care (01) ==
LOC: ER 22:42
DX: R07.89 Other chest pain (principal); R07.81 Pleurodynia; M25.562 Pain in left knee; R10.9 Unspecified abdominal pain; V87.7XXA Person injured in collision between other specified motor vehicles (traffic), initial encounter
CPT/HCPCS: 99284; 36415; 85025; 81025; 80053; 81001; 73564; 71101; S0119

== ENCOUNTER → 2019-11-19 | Outpatient (CLI) | payer BC ==
[2019-11-19 15:02] LABS: FREE T3 3.4 pg/mL (2.77-5.27); FREE T4 (FREE THYROXINE) 0.95 ng/dL (0.78-2.19)
[2019-11-19 15:15] LABS: THYROID STIMULATING HORMONE 0.19 uIU/mL (0.47-4.68)
== END ==
LOC: OD 13:51
PROVIDERS: ATTEND Family Medicine Geriatric Medicine
DX: E05.90 Thyrotoxicosis, unspecified without thyrotoxic crisis or storm (principal)
CPT/HCPCS: 36415; 84439; 84443; 84481

== ENCOUNTER → 2019-11-27 | Outpatient (CLI) | payer BC ==
--- NOTE | 2019-11-28 11:56 | RADIOLOGY REPORT (SQ) ---
EXAM DESCRIPTION: U/S THYROID/SFT TISS HD NECK IMAGES COMPLETED DATE/TIME: 11/27/2019 4:08 pm REASON FOR STUDY: E07.89 OTHER SPECIFIED DISORDERS OF THYROID E07.89 OTHER SPECIFIED DISORDERS OF T HYROID COMPARISON: CT soft tissue neck with contrast 02/22/2014 TECHNIQUE: Dynamic and static soni-scale images acquired of the thyroid gland. Selected additional c olor/power Doppler images recorded. All images stored to PACS. LIMITATIONS: None. FINDINGS: RIGHT LOBE: Normal size. Homogeneous echotexture. Few small hypoechoic nodular densities are similar to that seen on comparison CT imaging. LEFT LOBE: Normal size. Homogeneous echotexture. Subcentimeter cystic focus is seen within the post erior aspect of the gland. ISTHMUS: Normal size. Homogeneous echotexture. A 5 cm hypoechoic nodule is seen to the left of midl ine. OTHER: No other significant finding. IMPRESSION: Multiple small nodules, none of which meet imaging criteria for tissue sampling or anna marie nued monitoring and each of which appear stable relative to 2014 CT imaging. TECHNICAL DOCUMENTATION: JOB ID: [id number] 2010 [employer]- All Rights Reserved Reading location - IP/workstation name: [email or web address]
== END ==
LOC: RAD 15:38
PROVIDERS: ATTEND Family Medicine Geriatric Medicine
DX: E07.89 Other specified disorders of thyroid (principal); E05.90 Thyrotoxicosis, unspecified without thyrotoxic crisis or storm
CPT/HCPCS: 76536

== ENCOUNTER 2020-01-29 09:25 | Emergency (ER) | payer SELFPAY ==
[2020-01-29 11:27] LABS: APPEARANCE,URINE CLOUDY; BILIRUBIN,URINE NEGATIVE (NEGATIVE); CALCIUM OXALATE CRYSTALS,URINE MANY /HPF; COLOR,URINE YELLOW; GLUCOSE, URINE NEGATIVE (NEGATIVE); KETONES,URINE NEGATIVE (NEGATIVE); LEUKOCYTE ESTERASE,URINE NEGATIVE (NEGATIVE); NITRITE,URINE NEGATIVE (NEGATIVE); PROTEIN,URINE NEGATIVE (NEGATIVE); UROBILINOGEN,URINE NEGATIVE mg/dL (<2.0)
[2020-01-29 11:37] LABS: ABSOLUTE LYMPHOCYTES (AUTO) 1.5 10^3/uL (0.5-4.7); ABSOLUTE MONOCYTES (AUTO) 0.5 10^3/uL (0.1-1.4); ABSOLUTE NEUT (AUTO) 4.8 10^3/uL (1.7-8.2); BASOPHILS % (AUTO) 0.4 % (0-2); EOSINOPHILS % (AUTO) 0.6 % (0-6); HEMOGLOBIN 14.2 g/dL (12.0-15.5); LYMPHOCYTES % (AUTO) 22.3 % (13-45); MEAN CORPUSCULAR HEMOGLOBIN 27.2 pg (27.0-33.4); MEAN CORPUSCULAR HGB CONC 33.7 g/dL (32.0-36.0); MEAN CORPUSCULAR VOLUME 81 fl (80-97); MONOCYTES % (AUTO) 6.8 % (3-13); PLATELET COUNT 375 10^3/uL (150-450); RED BLOOD COUNT 5.21 10^6/uL (3.72-5.28); RED CELL DISTRIBUTION WIDTH 13.1 % (11.5-14.0); SEGMENTED NEUTROPHILS % (AUTO) 69.9 % (42-78); TOTAL CELLS COUNTED % (AUTO) 100 %; WHITE BLOOD COUNT 6.8 10^3/uL (4.0-10.5)
[2020-01-29 11:39] LABS: ALBUMIN 4.8 g/dL (3.5-5.0); ALKALINE PHOSPHATASE 84 U/L (38-126); ANION GAP 10 (5-19); ASPARTATE AMINO TRANSFERASE 21 U/L (14-36); BILIRUBIN,DIRECT 0.2 mg/dL (0.0-0.4); BILIRUBIN,TOTAL 0.7 mg/dL (0.2-1.3); BLOOD UREA NITROGEN 10 mg/dL (7-20); CALCIUM 10.8 mg/dL (8.4-10.2); CARBON DIOXIDE 31 mmol/L (22-30); CHLORIDE 99 mmol/L (98-107); GLUCOSE 94 mg/dL (75-110)
[2020-01-29] MEDS ORDERED: ONDANSETRON HCL INJ/PF 4 MG/2 ML SDV IV ONE (12:47)
[2020-01-29] MEDS ORDERED: DEXTROSE 5%-LACTATED RINGERS 1,000 ML IV ONE (12:47)
[2020-01-29] MEDS ORDERED: KETOROLAC TROMETHAMINE INJ/PF 30 MG/1 ML SDV IV ONE (12:48)
--- NOTE | 2020-01-29 13:30 | ER Document Report ---
Entered by SUHAIL SANTILLAN SCRIBE 01/29/20 1234 Acting as scribe for:PARISH BOURGEOIS MD ED General - General Chief Complaint: Vomiting Stated Complaint: VOMITING Time Seen by Provider: 01/29/20 12:30 Primary Care Provider: FEDERICO GABRIEL MD [Primary Care Provider] - Follow up as needed Mode of Arrival: Ambulatory Information source: Patient Notes: This 34 year old female patient presents to the ED today for evaluation of nausea and vomiting for the past x1 week. Patient states that she has not been able to keep anything down and that she has lost approximately x10 lbs. She reports a fever of 100.5 last week. When asked if she has any abdominal pain, she states that "yeah, it is painful." Denies cough or loss of smell. TRAVEL OUTSIDE OF THE [place] IN LAST 30 DAYS: No - Related Data Allergies/Adverse Reactions: No Known Allergies Allergy (Verified 04/17/18 11:55) Past Medical History - General Information source: Patient, [facility] Records - Social History Smoking Status: Former Smoker - quit 11/2019 Cigarette use (# per day): No Chew tobacco use (# tins/day): No Smoking Education Provided: No Frequency of alcohol use: None Drug Abuse: None Family History: Reviewed & Not Pertinent Patient has suicidal ideation: No Patient has homicidal ideation: No Psychiatric Medical History: Reports: Hx Anxiety, Hx Bipolar Disorder, Hx Depr ession Past Surgical History: Reports: Hx Tonsillectomy - Immunizations Hx Diphtheria, Pertussis, Tetanus Vaccination: Yes Review of Systems - Review of Systems Constitutional: See HPI, Fever, Weight loss EENT: See HPI, Other - Loss of smell Cardiovascular: No symptoms reported Respiratory: See HPI. denies: Cough Gastrointestinal: See HPI, Abdominal pain, Nausea, Vomiting, Poor fluid intake Genitourinary: No symptoms reported Female Genitourinary: No symptoms reported Musculoskeletal: No symptoms reported Skin: No symptoms reported Hematologic/Lymphatic: No symptoms reported Neurological/Psychological: No symptoms reported -: Yes All other systems reviewed and negative Physical Exam - Vital signs Vitals: Temp Pulse Resp BP Pulse Ox 98.5 F 59 L 16 117/62 97 01/29/20 10:04 01/29/20 10:04 01/29/20 10:04 01/29/20 10:04 01/29/20 10:04 - General General appearance: Appears well, Alert In distress: None - HEENT Head: Normocephalic, Atraumatic Eyes: Normal Pupils: PERRL - Respiratory Respiratory status: No respiratory distress Chest status: Nontender Breath sounds: Normal Chest palpation: Normal - Cardiovascular Rhythm: Regular Heart sounds: Normal auscultation Murmur: No Friction rub: No Gallop: None auscultated - Abdominal Inspection: Obese Distension: No distension Bowel sounds: Normal Tenderness: Nontender - Abdomen soft Organomegaly: No organomegaly - Back Back: Normal, Nontender - Extremities General upper extremity: Normal inspection General lower extremity: Normal inspection. No: Edema - Neurological Neuro grossly intact: Yes Orientation: AAOx4 Simba Coma Scale Eye Opening: Spontaneous Simba Coma Scale Verbal: Oriented Rea Coma Scale Motor: Obeys Commands Rea Coma Scale Total: 15 - Psychological Associated symptoms: Normal affect, Normal mood - Skin Skin Temperature: Warm Skin Moisture: Dry Skin Color: Normal Course - Re-evaluation Re-evalutation: 01/29/20 14:44 The patient was evaluated during the global COVID-19 pandemic and that diagnosis was suspected/considered upon their initial presentation. Their evaluation, treatment and testing was consistent with current guidelines for patients who present with complaints or symptoms that may be related to COVID-19. 01/29/20 15:37 The patient reports being unable to keep anything down for 7 days, and 10 pound weight loss. Her urinalysis has no ketones, and her BUN is 10. 01/29/20 16:15 And has had 1 L of IV fluids. She has been up to the bathroom to urinate. She states she is feeling better. She will be discharged home with prescription for Zofran, precautions to self isolate till she gets his Covid testing back. - Vital Signs Vital signs: Temp Pulse Resp BP Pulse Ox 98.5 F 59 L 16 117/62 97 01/29/20 10:04 01/29/20 10:04 01/29/20 10:04 01/29/20 10:04 01/29/20 10:04 - Laboratory Result Diagrams: 01/29/20 11:05 01/29/20 11:05 Laboratory results interpreted by me: 01/29/20 11:05 Carbon Dioxide 31 H Calcium 10.8 H Discharge - Discharge Clinical Impression: Nausea and vomiting Qualifiers: Vomiting type: unspecified Vomiting Intractability: non-intractable Qualified Code(s): R11.2 - Nausea with vomiting, unspecified Abdominal pain Qualifiers: Abdominal location: unspecified location Qualified Code(s): R10.9 - Unspecified abdominal pain Condition: Stable Disposition: HOME, SELF-CARE Instructions: COVID-19 Guidance for Persons Under Investigation Additional Instructions: Abdominal Pain There are many causes of abdominal pain. Pain can mean a serious problem requiring surgery (such as appendicitis). It can also be an innocent problem that goes away on its own (such as a viral infection). Often, time must pass to determine the cause of pain. The physician does not feel that hospitalization is necessary, at present. Things may change within the next 24 hours. Call the doctor or come back for re- examination if any problems occur, such as: (1) Pain that becomes more severe, steady, or becomes concentrated in one specific area. Also, pain that is more severe with movement or coughing. (2) Vomiting that persists or becomes more frequent. (3) Blood in the vomitus, urine, or bowel movements. Blood in the stool may have a tarry or black appearance. (4) Shaking chills or fever greater than 100 degrees F. (5) The abdomen becomes more distended or swollen. (6) Bowel movements cease. (7) Failure to improve as expected. Nausea or Vomiting, Nonspecific Vomiting (or nausea without vomiting) can be caused by many different problems. Of course, it can mean that something's wrong with the stomach, such as "stomach flu," ulcers, or inflammation. But it can also be a symptom of a problem that has nothing to do with the stomach or intestines. Vomiting is common with severe headaches, earaches, and tonsillitis. We see it with pneumon ia or heart attacks. Drugs can cause nausea. Many abdominal problems cause vomiting; for example, gallstones, kidney stones, pancreatitis, and intestinal obstruction (blocked bowels). In most cases, curing the vomiting depends on fixing the problem that caused it. For temporary relief, we may use an anti-nausea medicine. For home use, we can prescribe suppositories, chewable pills, pills that dissolve in the mouth, or liquid anti-nausea drugs. If the vomiting seems to be caused by a problem in the stomach, acid-suppressing drugs may be prescribed as well. It's important to avoid dehydration. Sip clear liquids. Take increasing amounts of fluid over the first 24 hours. Then start small amounts of bland foods (such as dry toast, applesauce, mashed potato). Avoid aspirin, tobacco, an d alcohol. Gradually resume your usual diet. If the vomiting worsens, if the problem that's making you vomit worsens, or if there's evidence of bleeding in the stomach (such as black, tarry stool, bloody or black vomit, or lightheadedness), you should return immediately. Call your doctor if you aren't improved in 24 to 36 hours. Take the Zofran for nausea if needed. Drink small sips cool clear liquids today until your nauseousness has resolved. Self isolate at home until you get the results of the Covid testing. Follow-up with your primary care provider if not improving. RETURN TO THE EMERGENCY ROOM IF ANY NEW OR WORSENING SYMPTOMS. Prescriptions: Ondansetron [Zofran Odt 4 mg Tablet] 1 - 2 tab PO Q4H PRN #14 tab.rapdis PRN Reason: Forms: Return to Work Referrals: FEDERICO GABRIEL MD [Primary Care Provider] - Follow up as needed I personally performed the services described in the documentation, reviewed and edited the documentation which was dictated to the scribe in my presence, and it accurately records my words and actions.
[2020-01-29 17:10] VITALS: BP 115/59
== END 2020-01-29 17:00 | disposition home or self-care (01) ==
LOC: ER 09:25
DX: R11.2 Nausea with vomiting, unspecified (principal); R63.4 Abnormal weight loss; R10.9 Unspecified abdominal pain; R50.9 Fever, unspecified; Z87.891 Personal history of nicotine dependence; Z20.828 Contact with and (suspected) exposure to other viral communicable diseases
CPT/HCPCS: 99284; 96361; 96374; 96375; 36415; 85025; 87635; 81025; 80053; 81001; J1885; J2405; J7121; C9803